=== PATIENT | female | born 1990 | race African-American/Black ===

== ENCOUNTER 2018-11-02 18:51 | Emergency (ER) | payer BC ==
[~2018-11-02 18:51] MED LIST: Iopamidol 370 76% 100 ML VIAL ONE
[2018-11-02 19:18] LABS: Bilirubin Small (Negative); Blood, Urine Negative (Negative); Glucose, Urine (Dipstick) Negative (Negative); Leukocyte Trace (Negative); Nitrite Negative (Negative); Protein, Urine (Dipstick) Negative (Neg-Trace); pH, Urine 6.5 (5.0-9.0)
[2018-11-02 19:28] LABS: Bacteria/HPF 2+ HPF (None Seen); Clarity SL HAZY (Clear); RBC/HPF 0-3 HPF (0-3)
[2018-11-02 19:29] LABS: Pregnancy Test - Urine (BHCG) Negative (Negative); Pregu Control Background? CLEAR/WHITE (CLR/WHITE); Pregu Control Bar Appear? YES (CONTROL BAR)
[2018-11-02] MEDS ORDERED: Ketorolac Tromethamine 30 MG/ML VIAL ONE (19:46)
[2018-11-02 19:59] LABS: #Basophils 0.1 thou/uL (0.0-0.2); #Eosinphils 0.1 thou/uL (0.0-0.7); #Lymphocytes 1.6 thou/uL (1.20-3.40); #Monocytes 0.5 thou/uL (0.11-0.59); #Neutrophils 4.5 thou/uL (1.40-6.50); %Basophils 0.9 % (0.0-1.0); %Eosinophils 1.2 % (0.0-10.0); %Lymphocytes 23.4 % (21.0-51.0); %Monocytes 7.8 % (0.0-10.0); %Neutrophils 66.8 % (42.0-75.0); Hemoglobin 12.8 g/dL (12.0-16.0); Mean Corpuscular HGB CONC 31.3 g/dL (32.0-36.0); Mean Corpuscular Hemoglobin 28.2 pg (27.0-31.0); Mean Corpuscular Volume 90.3 fL (78.0-98.0); Mean Platelet Volume 10.4 fL (7.4-10.4); Platelet Count 220 thou/uL (130-400); RBC Distribution Width 12.9 % (11.5-14.5); Red Blood Cell (RBC) Count 4.54 mill/uL (4.20-5.40); White Blood Cell (WBC) Count 6.7 thou/uL (4.8-10.8)
[2018-11-02 20:14] LABS: ALT (SGPT) 581 U/L (8-55); AST (SGOT) 811 U/L (5-34); Albumin 3.8 g/dL (3.5-5.0); Alkaline Phosphatase 235 U/L (40-150); Anion Gap 11 mmol/L (10-20); BUN (Urea Nitrogen) 6 mg/dL (7.0-18.7); Bilirubin, Total 1.9 mg/dL (0.2-1.2); Calc. Creatinine Clearance 0 mL/min (70-130); Calcium 9.2 mg/dL (7.8-10.44); Carbon Dioxide 23 mmol/L (22-29); Chloride 109 mmol/L (98-107); Estimated GFR-MDRD Greater than 90; Globulin 3.4 g/dL (2.4-3.5); Glucose 79 mg/dL (70-105); Lipase 28 U/L (8-78); Potassium 3.5 mmol/L (3.5-5.1); Protein, Total 7.2 g/dL (6.0-8.3); Sodium 139 mmol/L (136-145)
[2018-11-02] MEDS ORDERED: Morphine 4 MG/ML VIAL ONE (21:50)
[2018-11-02] MEDS ORDERED: Ondansetron PF 4 MG/2 ML Vial ONE (21:50)
--- NOTE | 2018-11-02 22:01 | CT ---
CT ABDOMEN AND PELVIS: 11/02/2018 HISTORY: Diffuse abdominal pain. COMPARISON: None. TECHNIQUE: Axial CT imaging obtained at 5 mm intervals, from the lung bases through the pubic symphysis, with IV contrast. Coronal reformatted imaging obtained. FINDINGS: The imaged lung bases appear unremarkable. No free intraperitoneal air noted. There is mild diffuse intrahepatic biliary dilatation, right greater than left. No discrete focal [place] lesion is identified. The spleen appears unremarkable. The gallbladder contains numerous stones, many of which are near the region of the gallbladder neck. The common bile duct appears dilated, measuring up to 1.1 cm. The etiology is uncertain. No discret e pancreatic mass lesion is seen. Biliary dilatation may signify obstruction, on the basis of nonvis ualized choledocholithiasis. Neither kidney appears obstructed. Tiny, low density lesions noted wit hin both kidneys, too small to characterize. Detailed assessment of the bowel is limited without oral contrast media. There is no evidence for mandie wel inflammatory change or bowel obstruction. The appendix appears unremarkable. No lymphadenopathy is evident within the abdomen or pelvis. The vascular structures appear patent. No acute osseous abnormality is noted. There is mild levoscoliosis of the upper lumbar spine. IMPRESSION: Dilated common bile duct with intrahepatic biliary dilatation and numerous stones within the gallblad martha. Findings are suspicious for biliary obstruction, possibly on the basis of non visualized choled ocholithiasis. Evaluation for cholecystitis is limited on CT. Re[facility] CODE T POS: TAHMINA
[2018-11-03 12:27] LABS: HBCM Index 0.08 S/CO (0-0.79); HBSAg Index 0.18 S/CO (0-0.99); Hep A IgM AB Non-Reactive (NonReactive); Hep A IgM S/CO 0.18 S/CO (0-0.79); Hep B Surf Ag Non-Reactive S/CO (NonReactive); Hep C IgG Ab Non-Reactive (NonReactive); Hep C Index 0.07 S/CO (0-0.79); Hepatitis B Core IgM Abs Non-Reactive (NonReactive)
== END 2018-11-02 22:05 | disposition short-term general hospital (02) ==
LOC: NAV ERS 18:51
DX: R10.11 Right upper quadrant pain (principal); R10.13 Epigastric pain; R74.0 Nonspecific elevation of levels of transaminase and lactic acid dehydrogenase [LDH]
CPT/HCPCS: 74177; 80053; 80074; 80307; 81003; 81015; 81025; 83690; 85025; 96372; 96374; 96375; J1885; J2270; J2405